=== PATIENT | female | born 1960 | race Caucasian/White ===

== ENCOUNTER → 2017-04-23 | Outpatient (CLI) | payer BC ==
[~2017-04-23] MED LIST: HYDROCODON-ACE1 EAC5 PO; TYLENOL325 M1 PO
--- NOTE | ~2017-04-23 | CT55 ---
[facility] A Service of [facility] RADIOLOGY TEXT RESULTS PATIENT: MANNY SHEA [facility] 56 UNIT #: [id number] AGE: [address]: Lucero Alcazar MD SEX: F ORDER DR: [id number] [place], [place] [address] [id number] O MR#: [id number] [facility] #: [id number] NAME: MANNY SHEA : 1960 SEX: F STUDY DATE/TIME: 04/23/2017 14:24 [facility] ROOM: STUDY DESCRIPTION: CT Chest W Con Attending Physician: Lucero Alcazar M.D. Referring Physician: Lucero Alcazar M.D. Ordering Physician: Lucero Alcazar M.D. Primary Care Physician: Lucero Alcazar M.D. MEDICAL IMAGING REPORT This report is preliminary unless electronic signature is present EXAM CT of the chest with contrast INDICATIONS Pulmonary nodules, these were identified on a prior CT performed January 08, 2017. Patient had narrowing of the bronchus to the left lower lobe on this CT. TECHNIQUE Axial CT images were obtained from the thoracic inlet through the dome of the diaphragm following the administration of intravenous contrast material. This CT exam was performed with one or more of the following radiation dose reduction techniques: Automatic exposure control, adjustment of mA and/or kV according to patient size, and iterative reconstruction. FINDINGS Background emphysematous changes are noted. On prior examinations, patient was noted to have some obstruction of the bronchus to the left lower lobe with associated atelectasis. This appears improved although there is some persistent consolidation noted within the left lower lobe measuring about 1.3 x 1.2 cm. There is also some persistent scarring identified within the right lower lobe as well, with additional patchy biapical fibrotic change noted as well. The thyroid gland, trachea and esophagus appear unremarkable. There is no pleural or pericardial effusion. This patient does have an enlarged left paratracheal node, which measures about 1.5 x 1.3 cm, previously 1.1 x 1.5 cm. I am uncertain if this is a true increase in size or is related to difference in technique, but I would suggest continued followup. Images through the upper abdomen do not demonstrate any acute abnormality. 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 [facility] A Service of [facility] RADIOLOGY TEXT RESULTS PATIENT: MANNY SHEA LOCATION: [facility] : 56 UNIT #: [id number] AGE: [address]: Lucero Alcazar MD SEX: F ORDER DR: study. Thyroid gland, trachea and esophagus appear unremarkable. No aggressive osseous abnormalities are seen. IMPRESSION 1. On prior study, the patient was noted to have some obstruction of the bronchi to the left lower lobe. This appears improved when compared to the prior examination. There is some persistent consolidation noted at the left lung base. In addition, the patient has an enlarged left paratracheal node. Given these findings and background emphysematous changes, I would suggest continued CT followup with next followup suggested in 6 months. 2. 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 3. Please see the body of the report for any other additional incidental findings. Dictated by... Lamar Maxwell M.D. THIS IS AN ELECTRONICALLY VERIFIED REPORT Lamar Maxwell M.D. at 04/26/2017 4:51 PM AFF/psc TD: 04/25/2017 19:03 JOB #: [id number] MEDICAL IMAGING REPORT Page 1 of 1 COPY
== END | disposition home or self-care (01) ==
LOC: CCAT 13:11
DX: R91.1 Solitary pulmonary nodule (principal); J98.09 Other diseases of bronchus, not elsewhere classified
CPT/HCPCS: 71260; Q9967